=== PATIENT | female | born 1975 | race African-American/Black ===

== ENCOUNTER 2017-01-29 12:46 | Emergency (ER) | payer OTHER ==
[2017-01-29] MEDS ORDERED: NS 0.9% 1000 ML* 1,000 ML IV ONE (13:04)
[2017-01-29] MEDS ORDERED: Ketorolac INJ* 30 MG/ML 1 ML VIAL IV ONE (13:06)
[2017-01-29] MEDS ORDERED: Metoclopramide IV* 5 MG/ML 2 ML VIAL IV ONE (13:06)
[2017-01-29] MEDS ORDERED: diPHENhydraMINE IV* 50 MG/ML 1 ml VIAL (BENADRYL) IV ONE (13:06)
[2017-01-29 13:22] LABS: Hematocrit 41 % (35-47); Hemoglobin 13.4 g/dl (12.0-16.0); Mean Corpuscular HGB Conc 33 g/dl (31-36); Mean Corpuscular Hemoglobin 26 pg (27-31); Mean Corpuscular Volume 80 fL (80-97); Mean Platelet Volume 10 um3 (7.4-10.4); Red Blood Count 5.13 10^6/ul (4.0-5.4); Red Cell Distribution Width 14 % (10.5-15); White Blood Count 5.8 10^3/ul (3.5-10.8)
[2017-01-29 13:31] LABS: Albumin 3.8 g/dL (3.2-5.2); BUN/Creatinine Ratio 8.8 (8-20); C Reactive Protein 1.03 mg/L (< 5.00); Calcium 8.3 mg/dL (8.6-10.3); EGFR African American 67.9 (>60); EGFR Non-African American 52.8 (>60); Globulin 2.9 g/dL (2-4); Potassium 3.5 mmol/L (3.5-5.0); Total Bilirubin 0.2 mg/dL (0.2-1.0); Total Protein 6.7 g/dL (6.4-8.9)
[2017-01-29] MEDS ORDERED: Ondansetron INJ* 2 MG/ML VIAL IV ONE (16:21)
[2017-01-29] MEDS ORDERED: HYDROmorphone* 1 MG/ML 1 ML SYR IV ONE (16:21)
--- NOTE | 2017-01-29 18:37 | RAD ---
INDICATION: Back pain. COMPARISON: There are no prior studies available for comparison. TECHNIQUE: Contiguous axial sections were obtained beginning above the T11 vertebra and continuing through the L5-S1 disc space. Images were reconstructed in the sagittal and coronal planes. FINDINGS: The vertebra are in normal alignment. No fracture is seen. At the L3-L4 level there is a mild broad-based disc bulge and mild hypertrophic changes within the facet joints. There is mild spinal canal narrowing. Neural foramen appear patent on both sides. At the L4-L5 level there is a mild broad-based disc bulge and mild hypertrophic changes within the facet joints. No significant spinal canal narrowing is present. Neural foramen appear patent on both sides. At the L5-S1 level there is a [id number] broad-based disc bulge which abuts both S1 nerve roots in the lateral recess. This causes mild impression on the anterior thecal sac and mild spinal canal narrowing. There are mild hypertrophic changes within the facet joints. Neural foramen appear patent on both sides. Images of the lower abdomen demonstrate fatty infiltration of the liver. IMPRESSION: 1. NO EVIDENCE FOR FRACTURE. 2. MILD TO MODERATE LUMBAR SPONDYLOSIS. 3. IF THE PATIENT'S SYMPTOMS PERSIST RECOMMEND MR IMAGING FOR FURTHER EVALUATION. 4. HEPATIC STEATOSIS.
[2017-01-29] MEDS ORDERED: Ondansetron ODT TAB* 4 MG PO PRN (19:09)
[2017-01-29] MEDS ORDERED: Ondansetron ODT TAB* 4 MG ONE (19:17)
[2017-01-29] MEDS ORDERED: HYDROcodone/ACETAMIN 5-325 MG* 1 TAB ONE (19:17)
[2017-01-29 19:33] VITALS: BP 112/71
[2017-01-29] MEDS ORDERED: HYDROcodone/ACETAMIN 5-325 MG* 1 TAB PO SCH (20:00)
--- NOTE | 2017-02-02 15:32 | ED ---
Rowan Julio SooYoung, scribed for Harmeet Barton MD on 01/29/17 at 1304 . Headache - HPI Summary HPI Summary: A 41 y/o F presents to ED with c/o BEAN onset two days ago after a LP at the pain clinic. She attempted to contact pain clinic but no one was available on the weekends. Associated sx: pain in RLE, confusion, dizziness upon standing, nausea. Pert PMHx: pseudotumor cerebri, migraines. - History Of Current Complaint Chief Complaint: EDHeadache Stated Complaint: CONFUSTION AMS Time Seen by Provider: 01/29/17 12:52 Hx Obtained From: Patient Hx Last Menstrual Period: 06/22/14 Onset/Duration: Started days ago - two days ago, Still Present Timing: Constant Associated Signs And Symptoms: Dizziness, Nausea, Other (Noted In Comments) - POS: RLE PAIN - Allergies/Home Medications Allergies/Adverse Reactions: Allergies Allergy/AdvReac Type Severity Reaction Status Date / Time [place] Allergy unable to Verified 01/27/17 10:25 speak Prednisone Allergy Agitation Verified 01/27/17 10:25 PMH/Surg Hx/FS Hx/Imm Hx Previously Healthy: No Endocrine/Hematology History: Denies: Hx Diabetes Cardiovascular History: Denies: Hx Hypertension, Hx Pacemaker/ICD Respiratory History: Reports: Hx Asthma - Albuterol MDI PRN, Hx Seasonal Allergies History: Denies: Hx Renal Disease Musculoskeletal History: Reports: Hx Back Problems Sensory History: Denies: Hx Hearing Aid Neurological History: Reports: Hx Migraine Psychiatric History: Reports: Hx Anxiety, Hx Depression, Hx Panic Disorder, Hx Post Traumatic Stress Disorder, Hx Bipolar Disorder - Surgical History Surgery Procedure, Year, and Place: LEFT OVARY REMOVED, tonsilectomy 1984 Hx Anesthesia Reactions: No - Immunization History Date of Tetanus Vaccine: 2009 Date of Influenza Vaccine: >10 years ago Infectious Disease History: No Infectious Disease History: Denies: Traveled Outside the [place] in Last 30 Days - Family History Known Family History: Positive: Cardiac Disease - mother, Hypertension - mother Negative: Diabetes - Social History Occupation: Unemployed Lives: With Family Alcohol Use: None Hx Substance Use: No Substance Use Type: Reports: None Hx Tobacco Use: No Smoking Status (MU): Never Smoked Tobacco Have You Smoked in the Last Year: No Review of Systems Positive: Nausea Positive: Other - POS: RLE PAIN Neurological: Other - POS: CONFUSION, DIZZYNESS Positive: Headache All Other Systems Reviewed And Are Negative: Yes Physical Exam Triage Information Reviewed: Yes Vital Signs On Initial Exam: Initial Vitals Temp Pulse Resp BP Pulse Ox 98.4 F 104 18 136/86 99 01/29/17 12:52 01/29/17 12:52 01/29/17 12:52 01/29/17 12:52 01/29/17 12:52 Vital Signs Reviewed: Yes Appearance: Positive: Well-Appearing, No Pain Distress Skin: Positive: Warm, Skin Color Reflects Adequate Perfusion, Dry, Other - POS: LP SITE IS CLEAN, NON-TENDER Head/Face: Positive: Normal Head/Face Inspection Eyes: Positive: Normal, Other: - POS: PAPILLEDEMA ENT: Positive: Normal ENT inspection Neck: Positive: Supple, Nontender Musculoskeletal: Positive: Other - POS: STRAIGHT LEG RAISE ON RIGHT Neurological: Positive: Normal Psychiatric: Positive: Normal, Affect/Mood Appropriate Diagnostics - Vital Signs Vital Signs Temp Pulse Resp BP Pulse Ox 01/29/17 12:52 98.4 F 104 18 136/86 99 - Laboratory Lab Results: Lab Results 01/29/17 01/29/17 Range/Units 13:08 13:08 WBC 5.8 (3.5-10.8) 10^3/ul RBC 5.13 (4.0-5.4) 10^6/ul Hgb 13.4 (12.0-16.0) g/dl Hct 41 (35-47) % MCV 80 (80-97) fL MCH 26 L (27-31) pg MCHC 33 (31-36) g/dl RDW 14 (10.5-15) % Plt Count 274 (150-450) 10^3/ul MPV 10 (7.4-10.4) um3 Neut % (Auto) 44.4 (38-83) % Lymph % (Auto) 45.8 (25-47) % Ashley % (Auto) 7.3 (1-9) % Eos % (Auto) 1.8 (0-6) % Baso % (Auto) 0.7 (0-2) % Absolute Neuts (auto) 2.6 (1.5-7.7) 10^3/ul Absolute Lymphs (auto) 2.7 (1.0-4.8) 10^3/ul Absolute Monos (auto) 0.4 (0-0.8) 10^3/ul Absolute Eos (auto) 0.1 (0-0.6) 10^3/ul Absolute Basos (auto) 0 (0-0.2) 10^3/ul Absolute Nucleated RBC 0.01 10^3/ul Nucleated RBC % 0.1 Sodium 138 (133-145) mmol/L Potassium 3.5 (3.5-5.0) mmol/L Chloride 111 (101-111) mmol/L Carbon Dioxide 21 L (22-32) mmol/L Anion Gap 6 (2-11) mmol/L BUN 10 (6-24) mg/dL Creatinine 1.13 H (0.51-0.95) mg/dL Est GFR ( Amer) 67.9 (>60) Est GFR (Non-Af Amer) 52.8 (>60) BUN/Creatinine Ratio 8.8 (8-20) Glucose 105 H (70-100) mg/dL Calcium 8.3 L (8.6-10.3) mg/dL Total Bilirubin 0.20 (0.2-1.0) mg/dL AST 24 (13-39) U/L ALT 38 (7-52) U/L Alkaline Phosphatase 67 (34-104) U/L C-Reactive Protein 1.03 (< 5.00) mg/L Total Protein 6.7 (6.4-8.9) g/dL Albumin 3.8 (3.2-5.2) g/dL Globulin 2.9 (2-4) g/dL Albumin/Globulin Ratio 1.3 (1-3) Result Diagrams: 01/29/17 13:08 01/29/17 13:08 Lab Statement: Any lab studies that have been ordered have been reviewed, and results considered in the medical decision making process. - CT L-SPINE CT Interpretation: No Acute Changes - IMPRESSION: 1. NO EVIDENCE FOR FRACTURE. 2. MILD TO MODERATE LUMBAR SPONDYLOSIS. 3. IF THE PATIENT'S SYMPTOMS PERSIST RECOMMEND MR IMAGING FOR FURTHER EVALUATION. 4. HEPATIC STEATOSIS. CT Interpretation Completed By: Radiologist Re-Evaluation - Re-Evaluation 1 Re-Evaluation Time: 18:39 Change: Improved - mildly Comment: Discussing CT results with pt. Headache Course/Dx - Course Assessment/Plan: Pt is a 41 y/o F with recent diagnosis of psuedotumor cerebri who had a LP two days ago and has been experiencing RLE pain, BEAN, confusion, dizziness and nausea since. PE found the wound site clean and non-tender, some L papilledema. L-spine CT showed no fx, mild-moderate lumbar spondylosis, hepatic steatosis, and suggested MRI for further evaluation if symptoms persist. Will D/C home with Zofran and Hydrocodone/Acetaminophen. Pt voiced understanding. - Diagnoses Provider Diagnoses: Headache - Physician Notifications Discussed Care Of Patient With: 1619: Dr. Uribe, neuro, recommends symptomatic pain control; recommends against blood patch. 174: Spoke to Dr. Uribe. Discharge - Discharge Plan Condition: Stable Disposition: HOME Prescriptions: HYDROcodone/ACETAMIN 5-325 MG* [[place] 5-325 TAB*] 1 tab PO Q6H PRN #20 tab MDD 4 PRN Reason: Pain Ondansetron ODT TAB* [Zofran Odt TAB*] 4 mg PO Q6H PRN #20 tab.odt PRN Reason: Nausea/Vomiting Patient Education Materials: Acute Headache (ED), Hydrocodone/Acetaminophen ( By mouth), Ondansetron (By mouth) Referrals: Mercedes Dill MD [Primary Care Provider] - The documentation as recorded by the Rowan jacinto SooYoung accurately reflects the service I personally performed and the decisions made by me, Harmeet Barton MD.
== END 2017-01-29 19:31 | disposition home or self-care (01) ==
LOC: ED 12:46
DX: R51 Headache (principal); R42 Dizziness and giddiness; R11.0 Nausea
CPT/HCPCS: 36415; 72131; 80053; 85025; 86140; 96365; 96375; 99283; A9270-GY; J1170; J1200; J1885; J2405

== ENCOUNTER 2017-02-20 14:27 | Emergency (ER) | payer OTHER ==
[2017-02-20] MEDS ORDERED: Ondansetron INJ* 2 MG/ML VIAL IV ONE (15:29)
[2017-02-20] MEDS ORDERED: Morphine INJ* 4 MG/ML 1 ML SYRINGE IV ONE ×2 (15:29→16:58)
[2017-02-20] MEDS ORDERED: NS 0.9% 1000 ML* 1,000 ML IV ONE (15:29)
[2017-02-20 15:37] LABS: Hematocrit 43 % (35-47); Hemoglobin 14.1 g/dl (12.0-16.0); Mean Corpuscular HGB Conc 33 g/dl (31-36); Mean Corpuscular Hemoglobin 27 pg (27-31); Mean Corpuscular Volume 81 fL (80-97); Mean Platelet Volume 10 um3 (7.4-10.4); Red Blood Count 5.27 10^6/ul (4.0-5.4); Red Cell Distribution Width 15 % (10.5-15); White Blood Count 6.3 10^3/ul (3.5-10.8)
[2017-02-20 15:57] LABS: Albumin 4.5 g/dL (3.2-5.2); BUN/Creatinine Ratio 8.2 (8-20); Calcium 8.8 mg/dL (8.6-10.3); EGFR African American 62.2 (>60); EGFR Non-African American 48.3 (>60); Globulin 3.3 g/dL (2-4); Magnesium 2.1 mg/dL (1.9-2.7); Potassium 3.4 mmol/L (3.5-5.0); Total Bilirubin 0.4 mg/dL (0.2-1.0); Total Protein 7.8 g/dL (6.4-8.9)
[2017-02-20] MEDS ORDERED: Potassium Chlor TAB* 20 MEQ TAB.ER PO ONE (16:06)
--- NOTE | 2017-02-20 17:07 | ED ---
I, Oh,Kamilla, scribed for Teresa Torres MD on 02/20/17 at 1459 . Headache - HPI Summary HPI Summary: This 41 y/o female presents to ED for BEAN and difficulty with word finding since 1400 PM today. Pt was shopping at time of onset when she forgot what she was doing and became concerned. Positive blurred vision, trouble with word finding, and memory problem. Negative weakness. She is noted to be normotensive with systolic blood pressure of 109 en route per EMS. PMHx is significant for recently diagnosed pseudotumor cerebri and intracranial HTN in November 2016. Pt states that she had spinal tab and fluid trained 3 weeks ago. Primary care involves Dr. Uribe as her neurologist. Pt is unemployed and is currently living with her daughter. - History Of Current Complaint Chief Complaint: EDHeadache Stated Complaint: HEADACHE Hx Obtained From: Patient Hx Last Menstrual Period: 06/22/14 Onset/Duration: Sudden Onset Timing: Constant Character: Dull Location of Headache: Diffuse Aggravating Factor: Nothing Allevating Factors: Nothing Associated Signs And Symptoms: Visual Changes - blurred vision, Other (Noted In Comments) - trouble word finding - Allergies/Home Medications Allergies/Adverse Reactions: Allergies Allergy/AdvReac Type Severity Reaction Status Date / Time [place] Allergy unable to Verified 01/27/17 10:25 speak Prednisone Allergy Agitation Verified 01/27/17 10:25 Home Medications: Home Medications Acetazolamide [Acetazolamide ER] 500 mg PO BID 02/20/17 [History Confirmed 02/20] Doxepin HCl 75 mg PO BEDTIME 02/20/17 [History Confirmed 02/20/17] Furosemide TAB* [Lasix TAB*] 20 mg PO EVERY OTHER DAY 02/20/17 [History Confirmed 02/20/17] HYDROcodone/ACETAMIN 5-325 MG* [[place] 5-325 TAB*] 1 tab PO TID PRN 02/20/17 [ History Confirmed 02/20/17] Ondansetron [Ondansetron Odt] 8 mg PO TID PRN 02/20/17 [History Confirmed ] Potassium Chlor TAB* [Klor Con ER TAB*] 20 meq PO EVERY OTHER DAY 02/20/17 [ History Confirmed 02/20/17] Pregabalin CAP(*) [Lyrica CAP(*)] 150 mg PO BID 02/20/17 [History Confirmed ] Topiramate TAB(*) [Topamax 100 mg tab] 150 mg PO BID 02/20/17 [History Confirmed 02/20/17] metFORMIN* [Glucophage 500 MG TAB *] 500 mg PO DAILY 02/20/17 [History Confirmed 02/20/17] risperiDONE TAB* [RisperDAL*] 1 mg PO BEDTIME 02/20/17 [History Confirmed ] PMH/Surg Hx/FS Hx/Imm Hx Endocrine/Hematology History: Denies: Hx Diabetes Cardiovascular History: Denies: Hx Hypertension, Hx Pacemaker/ICD Respiratory History: Reports: Hx Asthma - Albuterol MDI PRN, Hx Seasonal Allergies History: Denies: Hx Renal Disease Musculoskeletal History: Reports: Hx Back Problems Sensory History: Denies: Hx Hearing Aid Neurological History: Reports: Hx Migraine Psychiatric History: Reports: Hx Anxiety, Hx Depression, Hx Panic Disorder, Hx Post Traumatic Stress Disorder, Hx Bipolar Disorder - Surgical History Surgery Procedure, Year, and Place: LEFT OVARY REMOVED, tonsilectomy 1983 Hx Anesthesia Reactions: No - Immunization History Date of Tetanus Vaccine: 2009 Date of Influenza Vaccine: >10 years ago Infectious Disease History: No Infectious Disease History: Denies: Traveled Outside the [place] in Last 30 Days - Family History Known Family History: Positive: Cardiac Disease - mother, Hypertension - mother Negative: Diabetes - Social History Alcohol Use: None Hx Substance Use: No Substance Use Type: Reports: None Hx Tobacco Use: No Smoking Status (MU): Never Smoked Tobacco Have You Smoked in the Last Year: No Review of Systems Negative: Fever Positive: Blurred Vision Neurological: Other - positive for trouble with word finding. Memory problems Positive: Headache. Negative: Numbness All Other Systems Reviewed And Are Negative: Yes Physical Exam Triage Information Reviewed: Yes Vital Signs On Initial Exam: Initial Vitals Temp Pulse Resp BP Pulse Ox 98.4 F 83 16 112/76 99 02/20/17 14:44 02/20/17 14:44 02/20/17 14:44 02/20/17 14:44 02/20/17 14:44 Vital Signs Reviewed: Yes Appearance: Positive: Well-Appearing, No Pain Distress Skin: Positive: Warm, Skin Color Reflects Adequate Perfusion, Dry Head/Face: Positive: Normal Head/Face Inspection Eyes: Positive: EOMI, KENISHA Neck: Positive: Supple, Nontender Respiratory/Lung Sounds: Positive: Clear to Auscultation, Breath Sounds Present Cardiovascular: Positive: RRR, Pulses are Symmetrical in both Upper and Lower Extremities Musculoskeletal: Positive: Strength/ROM Intact Neurological: Positive: Sensory/Motor Intact, Alert, Oriented to Person Place, Time, CN Intact II-III, Other - Trouble with word finding. Diagnostics - Vital Signs Vital Signs Temp Pulse Resp BP Pulse Ox 02/20/17 14:44 98.4 F 83 16 112/76 99 - Laboratory Lab Results: Lab Results 02/20/17 02/20/17 Range/Units 15:00 15:00 WBC 6.3 (3.5-10.8) 10^3/ul RBC 5.27 (4.0-5.4) 10^6/ul Hgb 14.1 (12.0-16.0) g/dl Hct 43 (35-47) % MCV 81 (80-97) fL MCH 27 (27-31) pg MCHC 33 (31-36) g/dl RDW 15 (10.5-15) % Plt Count 304 (150-450) 10^3/ul MPV 10 (7.4-10.4) um3 Neut % (Auto) 52.6 (38-83) % Lymph % (Auto) 39.0 (25-47) % Young % (Auto) 4.4 (1-9) % Eos % (Auto) 3.2 (0-6) % Baso % (Auto) 0.8 (0-2) % Absolute Neuts (auto) 3.3 (1.5-7.7) 10^3/ul Absolute Lymphs (auto) 2.5 (1.0-4.8) 10^3/ul Absolute Monos (auto) 0.3 (0-0.8) 10^3/ul Absolute Eos (auto) 0.2 (0-0.6) 10^3/ul Absolute Basos (auto) 0.1 (0-0.2) 10^3/ul Absolute Nucleated RBC 0.03 10^3/ul Nucleated RBC % 0.5 Sodium 137 (133-145) mmol/L Potassium 3.4 L (3.5-5.0) mmol/L Chloride 109 (101-111) mmol/L Carbon Dioxide 21 L (22-32) mmol/L Anion Gap 7 (2-11) mmol/L BUN 10 (6-24) mg/dL Creatinine 1.22 H (0.51-0.95) mg/dL Est GFR ( Amer) 62.2 (>60) Est GFR (Non-Af Amer) 48.3 (>60) BUN/Creatinine Ratio 8.2 (8-20) Glucose 84 (70-100) mg/dL Calcium 8.8 (8.6-10.3) mg/dL Magnesium 2.1 (1.9-2.7) mg/dL Total Bilirubin 0.40 (0.2-1.0) mg/dL AST 18 (13-39) U/L ALT 26 (7-52) U/L Alkaline Phosphatase 78 (34-104) U/L Total Protein 7.8 (6.4-8.9) g/dL Albumin 4.5 (3.2-5.2) g/dL Globulin 3.3 (2-4) g/dL Albumin/Globulin Ratio 1.4 (1-3) Result Diagrams: 02/20/17 15:00 02/20/17 15:00 Lab Statement: Any lab studies that have been ordered have been reviewed, and results considered in the medical decision making process. Re-Evaluation - Re-Evaluation First Eval Re-Evaluation Time: 16:53 Comment: MD in room to re-evaluate pt. Headache Course/Dx - Course Course Of Treatment: Case discussed at length with Dr. Uribe who knows pt well she does have a history of anxiety, migraines and more recently pseudotumor cerebri. Her headaches have been difficult to manage and she is seeing a specialist on in [place]. He suggested that her word finding and feeling of disorientation were not likely secondary to stroke but that checking electrolytes would be prudent given her medication of acetazolamide. Her potassium was repleted and her pain was controlled her and she is going home with a short course of pain meds - Diagnoses Provider Diagnoses: Headache, Hypokalemia - Physician Notifications Discussed Care Of Patient With: Dr. Uribe (Neurologist) at 1521 PM -- recommends checking her electrolytes since acetazolamide. Pt states it is unlikely that she has CVA on top of her psuedotumor cerebri. Discharge - Discharge Plan Condition: Stable Disposition: HOME Prescriptions: HYDROcodone/ACETAMIN 5-325 MG* [[place] 5-325 TAB*] 1 tab PO Q4H PRN #14 tab MDD 6 PRN Reason: Pain Ondansetron TAB* [Zofran 4 MG Tab*] 4 mg PO Q6H PRN #14 tab PRN Reason: Nausea Patient Education Materials: Hydrocodone/Acetaminophen (By mouth), Ondansetron (By mouth), Hypokalemia (ED), General Headache (ED) Referrals: Mercedes Dill MD [Primary Care Provider] - 2 Days The documentation as recorded by the Trever jacinto Soohyun accurately reflects the service I personally performed and the decisions made by me, Teresa Torres MD.
[2017-02-20 19:02] LABS: Urine Bilirubin Negative (Negative); Urine Glucose Negative (Negative); Urine Nitrite Negative (Negative)
--- NOTE | 2017-02-20 20:13 | RAD ---
INDICATION: Slurred speech, difficulty with words. COMPARISON: Comparison is made with a prior MRI of the brain from August 03, [address] of the brain from December 16, 2014. TECHNIQUE: Sagittal T1, axial T1, T2, susceptibility, FLAIR and diffusion weighted images were obtained. FINDINGS: The ventricles, cisterns and sulci appear to be within normal limits. No significant focal abnormality or mass effect is seen. No areas of restricted diffusion are present. There is no evidence for infarct or hemorrhage. There is mild bilateral exophthalmos which appears unchanged. There is a small area of mucosal thickening present with an either the anterior recess of the sphenoid sinus or a posterior ethmoid air cell on the right side which appears unchanged from the prior study. The paranasal sinuses and mastoid air cells otherwise appear clear. IMPRESSION: 1. NO EVIDENCE FOR ACUTE INTRACRANIAL ABNORMALITY. 2. BILATERAL EXOPHTHALMUS, UNCHANGED. THIS CAN BE SEEN WITH THYROID OPHTHALMOPATHY. RECOMMEND CLINICAL CORRELATION.
[2017-02-20 20:19] VITALS: BP 111/69
--- NOTE | 2017-02-20 21:04 | ED ---
I, Kamilla Perera, scribed for Teresa Torres MD on 02/20/17 at 1840 . Progress - Progress Note Progress Note: A friend is present at bedside strongly requesting admission. 2100 spoke with neurologist again after her mri which is negative, which rules out stroke. The neurologist feels comfortable with this report and it is therefore ok for the pt to go home. Pt is in agreement with this her nih scale for me is negative except for visual field issues on the left (see fingers but can not detect movement). Pt feels comfortable going home. - Results/Orders Results/Orders: Brain MRI -- 1. NO EVIDENCE FOR ACUTE INTRACRANIAL ABNORMALITY 2. BILATERAL EXOPHTHALMUS, UNCHANGED. THIS CAN BE SEEN WITH THYROID OPHTHALMOPATHY. RECOMMEND CLINICAL CORRELATION. Re-Evaluation - Re-Evaluation First Eval Re-Evaluation Time: 16:53 Comment: MD in room to re-evaluate pt. Second Eval Re-Evaluation Time: 18:53 Comment: MD in room to update pt and friend present at bedside on neuro consult and plan of care. Third Eval Re-Evaluation Time: 20:54 Comment: MD in room to update pt and friend on hospitalist and neurologist consult. Course/Dx - Diagnoses Provider Diagnoses: Headache, Hypokalemia - Provider Notifications Discussed Care Of Patient With: Dr. Aponte (Neurologist) at 1846 PM -- recommends non-contrast MRI. Remigio Nolasco NP (Hospitalist) at [address] García (Neurologist) at [address] Aponte (Neurologist) at 2052 PM The documentation as recorded by the Trever jacinto Soohyun accurately reflects the service I personally performed and the decisions made by me, Teresa Torres MD.
[2017-02-20] MEDS ORDERED: HYDROcodone/ACETAMIN 5-325 MG* 1 TAB PO ONE (21:22)
== END 2017-02-20 21:30 | disposition home or self-care (01) ==
LOC: ED 14:27
DX: R51 Headache (principal); E87.6 Hypokalemia; H53.8 Other visual disturbances
CPT/HCPCS: 36415; 70551; 80053; 81003; 83735; 85025; 96374; 96375; 99284; A9270-GY; J2270; J2405

== ENCOUNTER 2019-09-23 20:40 | Inpatient (IN) | payer BC, OTHER ==
[2019-09-23] MEDS ORDERED: Ondansetron INJ* 2 MG/ML VIAL IV ONE (21:34)
[2019-09-23] MEDS ORDERED: Ketorolac INJ* 30 MG/ML 1 ML VIAL IV PUSH ONE (21:34)
--- NOTE | 2019-09-23 21:43 | ED ---
Abdominal Pain/Female - HPI Summary HPI Summary: Pt is a 43 y/o F presenting to the ED with a chief complaint of RLQ abd pain initially onset on the morning of 09/23/19, waking her up from sleep. She has been cramping all day, with associated nausea. She has not vomited yet. She notes hx of endometriosis and ovarian cysts for which shes had her R ovary removed, and she also notes shes currently ovulating but normally does not have pain like this. The severity of the pain waxes and wanes. She denies fever. - History of Current Complaint Chief Complaint: EDAbdPain Stated Complaint: CRAMPS PER PT Hx Obtained From: Patient Hx Last Menstrual Period: 06/22/14 Onset/Duration: Sudden Onset, Lasting Hours, Still Present Timing: Constant Severity Initially: Moderate Severity Currently: Severe Pain Intensity: 8 Pain Scale Used: 0-10 Numeric Location: Discrete At: RLQ Radiates: No Character: Cramping Aggravating Factor(s): Nothing Alleviating Factor(s): Nothing Associated Signs and Symptoms: Positive: Nausea. Negative: Fever, Vomiting Allergies/Adverse Reactions: Allergies Allergy/AdvReac Type Severity Reaction Status Date / Time lithium Allergy Unknown Verified 09/23/19 20:46 Reaction Details prednisone Allergy Agitation Verified 09/23/19 20:46 PMH/Surg Hx/FS Hx/Imm Hx Previously Healthy: Yes Endocrine/Hematology History: Denies: Hx Diabetes Cardiovascular History: Denies: Hx Hypertension, Hx Pacemaker/ICD Respiratory History: Reports: Hx Asthma - Albuterol MDI PRN, Hx Seasonal Allergies History: Reports: Other Problems/Disorders - ovarian cysts, endometriosis Denies: Hx Renal Disease Musculoskeletal History: Reports: Hx Back Problems Sensory History: Denies: Hx Hearing Aid Neurological History: Reports: Hx Migraine Psychiatric History: Reports: Hx Anxiety, Hx Depression, Hx Panic Disorder, Hx Post Traumatic Stress Disorder, Hx Bipolar Disorder - Surgical History Surgery Procedure, Year, and Place: LEFT OVARY REMOVED, tonsilectomy 1983 Hx Anesthesia Reactions: No - Immunization History Date of Tetanus Vaccine: 2009 Date of Influenza Vaccine: >10 years ago Infectious Disease History: No Infectious Disease History: Denies: Traveled Outside the [place] in Last 30 Days - Family History Known Family History: Positive: Cardiac Disease - mother, Hypertension - mother Negative: Diabetes - Social History Alcohol Use: None Hx Substance Use: No Substance Use Type: Reports: None Hx Tobacco Use: No Smoking Status (MU): Never Smoked Tobacco Have You Smoked in the Last Year: No Review of Systems Negative: Fever Positive: Abdominal Pain, Nausea. Negative: Vomiting All Other Systems Reviewed And Are Negative: Yes Physical Exam - Summary Physical Exam Summary: Appearance: Well-appearing, Well-nourished, lying in bed comfortably Skin: Warm, dry, no obvious rash Eyes: sclera anicteric, no conjunctival pallor ENT: mucous membranes moist, pharynx appears normal Neck: Supple, nontender Respiratory: Clear to auscultation, no signs of respiratory distress Cardiovascular: Normal S1, S2. No murmurs. Normal distal pulses in tibial and radial bilaterally. Abdomen: Soft, tender in the RLQ, normal active bowel sounds present Musculoskeletal: Normal, Strength/ROM Intact Neurological: A&Ox3, awake and alert, mentation is normal, speech is fluent and appropriate Psychiatric: affect is normal, does not appear anxious or depressed Triage Information Reviewed: Yes Vital Signs On Initial Exam: Initial Vitals Temp Pulse Resp BP Pulse Ox 96.7 F 54 18 162/93 100 09/23/19 20:42 09/23/19 20:42 09/23/19 20:42 09/23/19 20:42 09/23/19 20:42 Vital Signs Reviewed: Yes Procedures - Sedation Patient Received Moderate/Deep Sedation with Procedure: No Diagnostics - Vital Signs Vital Signs Temp Pulse Resp BP Pulse Ox 09/23/19 20:42 96.7 F 54 18 162/93 100 - Laboratory Result Diagrams: 09/23/19 21:38 09/23/19 21:38 Lab Statement: Any lab studies that have been ordered have been reviewed, and results considered in the medical decision making process. - CT CT a/p CT Interpretation Completed By: Radiologist Summary of CT Findings: 1. Early versus partial small bowel obstruction in the region of the distal ileum. 2. Left lower lobe pulmonary nodule. 3. Partial collapse of the colon, as described above. ED physician has reviewed this report. - Ultrasound Transvaginal US Ultrasound Interpretation Completed By: Radiologist Summary of Ultrasound Findings: 1. Small cystic structure adjacent to the fundus of the uterus. 2. Right ovary is obscured by bowel gas. 3. Small amount of free intraperitoneal fluid. ED physician has reviewed this report. Abdominal Pain Fem Course/Dx - Course Course Of Treatment: 43 y/o F presenting to the ED with abdominal cramping since early on 09/23/19. Accompanied by nausea. She denies fever and vomiting. Hx endometriosis, ovarian cysts, and oophorectomy of one of her ovaries, she's unsure which one. Pt's physical exam shows RLQ tenderness. Transvaginal US shows: 1. Small cystic structure adjacent to the fundus of the uterus. 2. Right ovary is obscured by bowel gas. 3. Small amount of free intraperitoneal fluid. CT a/p shows: 1. Early versus partial small bowel obstruction in the region of the distal ileum. 2. Left lower lobe pulmonary nodule. 3. Partial collapse of the colon, as described above. Dr. Colón accepts pt to [facility] [place] as of 307. Dx of SBO. - Diagnoses Provider Diagnoses: SBO (small bowel obstruction) Discharge ED - Sign-Out/Discharge Documenting (check all that apply): Patient Departure - Discharge Plan Condition: Stable Disposition: ADMITTED TO [facility] - Billing Disposition and Condition Condition: STABLE Disposition: Admitted to [facility] - Attestation Statements Document Initiated by Scribe: Yes Documenting Scribe: Chela Whittaker Provider For Whom Stefany is Documenting (Include Credential): Harmeet Wallace MD. Scribe Attestation: Chela Julio scribed for Harmeet Wallace MD. on 09/24/19 at 0535. Scribe Documentation Reviewed: Yes Provider Attestation: The documentation as recorded by the raeibeChela accurately reflects the service I personally performed and the decisions made by Harmeet olguin MD. Status of Scribe Document: Viewed
[2019-09-23 21:45] LABS: ABS Lymphocytes 0.9 10^3/ul (1.0-4.8); ABS Monocytes 0.2 10^3/ul (0-0.8); ABS Neutrophils 8.1 10^3/ul (1.5-7.7); Eosinophil % 0.3 %; Hematocrit 47 % (35-47); Hemoglobin 16.3 g/dL (12.0-16.0); Mean Corpuscular HGB Conc 35 g/dL (31-36); Mean Corpuscular Hemoglobin 29 pg (27-31); Mean Corpuscular Volume 83 fL (80-97); Nucleated Red Blood Cells % 0.2; Platelet Count 367 10^3/uL (150-450); Red Blood Count 5.66 10^6 /uL (3.70-4.87); Red Cell Distribution Width 14 % (10-15); White Blood Count 9.2 10^3/uL (3.5-10.8)
[2019-09-23 22:03] LABS: ALT 17 U/L (7-52); AST 15 U/L (13-39); Albumin 4.9 g/dL (3.2-5.2); Albumin/Globulin Ratio 1.6 (1-3); Alkaline Phosphatase 55 U/L (34-104); Anion Gap 14 mmol/L (2-11); Blood Urea Nitrogen 10 mg/dL (6-24); C Reactive Protein 1.15 mg/L (<8.01); CO2 Carbon Dioxide 21 mmol/L (22-32); Chloride 100 mmol/L (101-111); EGFR African American 81.3 (>60); EGFR Non-African American 67.2 (>60); Glucose 97 mg/dL (70-100); Potassium 4.7 mmol/L (3.5-5.0); Sodium 135 mmol/L (135-145); Total Protein 7.9 g/dL (6.4-8.9)
[2019-09-23 22:10] LABS: HCG Pregnancy < 0.60 mIU/mL
[2019-09-23] MEDS ORDERED: Morphine 4 MG/ML VIAL (1 ml) 4 MG/ML VIAL IV PRN (22:57)
[2019-09-23] MEDS ORDERED: Morphine 4 MG/ML VIAL (1 ml) 4 MG/ML VIAL IV ONE (22:57)
[2019-09-24] MEDS ORDERED: PROCHLORPERAZINE INJ 5 MG/ML 2 ML VIAL IV ONE (01:39)
[2019-09-24] MEDS ORDERED: Ondansetron INJ* 2 MG/ML VIAL ONE (01:40)
[2019-09-24] MEDS ORDERED: Iohexol 300* (CONTRAST) 10 ML SDV IV ONE (01:56)
[2019-09-24 02:13] LABS: Urine Appearance Clear; Urine Bilirubin Negative (Negative); Urine Blood Negative (Negative); Urine Color Yellow; Urine Glucose Negative (Negative); Urine Ketones 2+ (Negative); Urine Nitrite Negative (Negative); Urine Protein 1+(30 mg/dL) (Negative); Urine Urobilinogen Negative (Negative)
[2019-09-24 02:20] LABS: Urine Bacteria Absent (Absent); Urine Red Blood Cell Trace(0-2/hpf) (Absent); Urine Squamous Epithelial Cell Present (Absent); Urine White Blood Cell Trace(0-5/hpf) (Absent)
[2019-09-24] MEDS: NS 0.9% 1000 ML** 1,000 ML IV SCH ×2 (05:33→18:14)
[2019-09-24] MEDS: Ondansetron INJ* 2 MG/ML VIAL IV PRN ×3 (06:01→20:15)
[2019-09-24] MEDS: Morphine INJ* 4 MG/ML 1 ML SYRINGE (NEW SYRINGE VERSION) IV PRN ×6 (08:00→23:35)
--- NOTE | 2019-09-24 08:28 | HP ---
CC: [facility] * HISTORY AND PHYSICAL: DATE OF ADMISSION: 09/24/19 PRIMARY CARE PROVIDER: [facility]. NEUROLOGIST: Dr. Uribe. CHIEF COMPLAINT: Abdominal pain. HISTORY OF PRESENT ILLNESS: Ms. Casarez is a 43-year-old female who has a history of endometriosis, requiring past right oophorectomy, who presents to the emergency room with complaints of severe right lower quadrant abdominal pain. The patient states that 09/22/19, she had a relatively uneventful day. She states that by evening, however, she did not really want to eat dinner. She had no pain, however, at that time. She woke up Monday, , with severe right lower quadrant abdominal pain. She describes this as a cramping feeling. She states that the pain got progressively worse throughout the day. She went to work, and by noon, she could not sit comfortably and therefore was sent home. She tells me she has had nausea and vomiting throughout the day on 09/23/19. She did not eat anything. Her last BM was on 09/22/19 and she last passed flatus on 09/22/19. She states currently she is the most comfortable she has been. PAST MEDICAL HISTORY: 1. Endometriosis. 2. Migraines. 3. Bipolar disorder. 4. Asthma. PAST SURGICAL HISTORY: 1. Right oophorectomy. 2. Tonsillectomy. MEDICATIONS: 1. Acetazolamide 500 mg p.o. b.i.d. 2. Potassium chloride 20 mEq p.o. every other day. ALLERGIES: LITHIUM and PREDNISONE. FAMILY HISTORY: Mom is living, she is 72, she has asthma and hypertension. Dad is also living, he is healthy. SOCIAL HISTORY: The patient does not smoke. She drinks alcohol approximately twice per week and drinks few glasses of wine when she does drink. She works at [employer]. Her significant other is here with her. She has 1 child. She indicates that her mom, Pao, would be her healthcare proxy. REVIEW OF SYSTEMS: The patient denies any fevers. She does admit to having chills. She has had poor appetite over the last 24 hours. No chest pain. No edema of the legs. No cough. No shortness of breath. She has nausea, vomiting , and abdominal discomfort as above. No hematochezia. No hematuria. No dysuria. No focal weakness or sensory loss. No sudden changes in vision. No dysphagia. No joint pains or muscle pains out of the ordinary. She does admit to anxiety. PHYSICAL EXAMINATION GENERAL: The patient is a well-developed, middle-aged female, seeing sitting up in the stretcher, in no acute distress. VITAL SIGNS: Blood pressure 118/73, pulse 51, respirations 16, temp 96.7, O2 sat 98% on room air. HEENT: Pupils are equal. Extraocular muscles are intact. Oropharynx is clear. Oral mucosa is moist. PULMONARY: Lungs are clear to auscultation bilaterally. CARDIAC: Normal S1 and S2. Regular rate and rhythm. I do not appreciate any murmurs. There is no lower extremity edema. ABDOMEN: Bowel sounds are hypoactive. Abdomen is soft, nondistended. She is moderately tender to palpation in the right greater than left lower quadrant. MUSCULOSKELETAL: There is no cyanosis or clubbing of the digits. There is full active range of motion of all 4 extremities. NEUROLOGIC: Cranial nerves II through XII are grossly intact. Sensation is intact to light touch throughout. Strength is 5/5 and symmetric in both upper and lower extremities bilaterally. PSYCH: The patient is alert. She is oriented x3. SKIN: Visible areas of skin are warm and dry and without rash. DIAGNOSTIC STUDIES/LAB DATA: Labs: WBC 9.2, hemoglobin 16.3, hematocrit 47, platelets 367. Sodium 135, potassium 4.7, chloride 100, CO2 of 21, BUN 10, creatinine 0.91, glucose 97, calcium 10.0. Bilirubin 0.6, AST 15, ALT 17, alk phos 55. CRP 1.15. Albumin of 4.9, lipase 13. Urinalysis reveals a specific gravity of 1.030, 2+ ketones. Transvaginal ultrasound: There is a small cystic structure adjacent to the fundus of the uterus, right ovary is reportedly obscured by bowel gas; however, the patient reports oophorectomy. There is a small amount of free intraperitoneal air. CT abdomen and pelvis: Early versus partial small bowel obstruction in the region of the distal ileum. There is a left lower lobe pulmonary nodule. There is partial collapse of the colon. ASSESSMENT AND PLAN: Ms. Casarez is a 43-year-old female with a history of endometriosis, status post oophorectomy on the right, who presents to the emergency room with complaints of right lower quadrant abdominal pain. 1. Partial small bowel obstruction. At this point, the patient has either a partial small bowel obstruction or early complete small bowel obstruction. She is more comfortable currently after receiving pain medications in the emergency room. She has still not passed any flatus. At this point, she is not markedly distended and not vomiting. Therefore, I will hold off on inserting a nasogastric tube. She will have Zofran for nausea and morphine for pain control. She will be n.p.o. Abdominal x-ray has been ordered for the morning of 09/25/19 to evaluate for improvement of the obstruction. 2. Migraines. The patient reportedly takes acetazolamide for her migraines. This will be on hold while n.p.o. 3. Bipolar disorder. The patient is not on treatment for this. 4. DVT prophylaxis. According to the Adult Thrombosis Prophylaxis Risk Factor Assessment Guide, the patient has a total risk factor score of 1, making her low risk. Ambulation will be utilized as DVT prophylaxis. 6. Code status is full. TIME SPENT: Fifty minutes was spent admitting this patient. [id number]/CPS #: [id number] MTDD
--- NOTE | 2019-09-24 13:32 | PN ---
Subjective Date of Service: 09/24/19 Interval History: Patient complained of persistent RLQ pain, radiating to back, a/w nausea but no vomitting. No bowel movement since Monday morning. Not passing gas. History of right ovary removal for endometriosis. Last menses 2 weeks ago. Objective Active Medications: Sodium Chloride (Ns 0.9% 1000 Ml) 1,000 mls @ 100 mls/hr IV PER RATE RONIT Last Admin: 09/24/19 05:33 Dose: 100 mls/hr Morphine Sulfate (Morphine Inj (Syringe)*) 4 mg IV Q1H PRN PRN Reason: PAIN - MODERATE Last Admin: 09/24/19 08:00 Dose: 4 mg Ondansetron HCl (Zofran Inj*) 4 mg IV Q6H PRN PRN Reason: NAUSEA Last Admin: 09/24/19 06:01 Dose: 4 mg Vital Signs - 8 hr 09/24/19 09/24/19 09/24/19 05:31 07:15 08:00 Temperature 97.6 F 97.6 F Pulse Rate 51 56 Respiratory 18 23 18 Rate Blood Pressure 108/68 108/69 (mmHg) O2 Sat by Pulse 100 100 Oximetry Oxygen Devices in Use Now: None Exam: Appearance: alert, no distress Ears/Nose/Mouth/Throat: Clear Oropharnyx Neck: NL Appearance and Movements; NL JVP, tunnelled catheter RT neck Respiratory: Symmetrical Chest Expansion and Respiratory Effort, Clear to Auscultation Cardiovascular: NL Sounds; No Murmurs; No JVD Abdominal: NL Sounds; No Tenderness; No Distention;RLQ abdominal tenderness, with no rebound tenderness, BS absent Neurological: Alert and Oriented x 3 Lines/Tubes/Other Access: Clean, Dry and Intact Peripheral IV Result Diagrams: 09/23/19 21:38 09/23/19 21:38 Assess/Plan/Problems-Billing Assessment: 43 y/o female with history of endometriosis, ovary removal, presented with abdominal cramping, found to have partial small bowel obstruction. - Patient Problems (1) Small bowel obstruction due to adhesions Current Visit: Yes Status: Acute Code(s): K56.50 - INTESTNL ADHESIONS, UNSP TO PARTIAL VERSUS COMPLETE OBST SNOMED Code(s): 842162144 Comment: - likely due to surgical adhesions or endometriosis - on medical management for now, npo, will consider ngt insertion if still having abdominal pain - surgical consult today - will need surgical management if not improving - iv morphine for pain control (2) DVT prophylaxis Current Visit: Yes Status: Acute Code(s): Z29.9 - ENCOUNTER FOR PROPHYLACTIC MEASURES, UNSPECIFIED SNOMED Code(s): 582930976 Comment: ambulatory Status and Disposition: Inpatient Medicine. Attestation Documenting Resident: Jacki Taylor Supervising Physician: Geo Urbina Attending/Supervising Physician Comment: This AM With RLQ dull aching pain with occasional sharper twinges that have been improved since IV morphine . Nausea but no vomiting (with zofran) Consider NGT placement to decompress stomache given continued pain and nausea without passing of flatus or BM. Requested sugery consult. Serial abdominal exams with concern that frequent morphine, if required, may mask full physical exam findings. Attestation: This service has been performed in part by a resident under the direction of a teaching physician.I, Geo Urbina, performed the service, or was physically present during the critical, or hernandez portions of the service, furnished by the resident. I participated in the management of the patient.
--- NOTE | 2019-09-24 16:15 | CONS ---
CC: Mercedes Dill MD * SURGICAL CONSULTATION: DATE OF CONSULT: 09/24/19 REASON FOR CONSULT: Small bowel obstruction. HISTORY OF PRESENT ILLNESS: This is a 43-year-old female with a past history of laparoscopic oophorectomy for endometriosis in 2002. She presented to [facility] Emergency Room last night with first episode of small bowel obstruction. Her symptoms began in the morning on 09/23/19 and she had progressive diffuse abdominal pain with 2 subsequent episodes of brown emesis with nausea. She had only been able to work part of the day due to her pain and her pain was unrelieved by ibuprofen and due to its progressive severity, she went to the emergency room at [facility]. There, she had evaluation with laboratory testing and CT imaging. Her laboratory testing revealed no leukocytosis and normal CRP and her CT scan was remarkable for early or partial small bowel obstruction. She was admitted to the hospitalist service and today surgical consultation is requested. At the time I interviewed the patient, she was sleeping, but she was easily arousable and she denied any severe pain, reporting good relief from Toradol. She denied passing flatus or having a bowel movement since 09/22/19. She denied any nausea or vomiting and reported that she felt slightly better at this time. PAST MEDICAL HISTORY: Significant for endometriosis, migraines, bipolar disorder, and asthma. PAST SURGICAL HISTORY: Significant for laparoscopic right oophorectomy and tonsillectomy. MEDICATIONS: 1. Acetazolamide 500 mg p.o. b.i.d. 2. Potassium chloride 20 mEq p.o. every other day. ALLERGIES: Reported to LITHIUM and PREDNISONE. FAMILY HISTORY: Notable for asthma, hypertension. SOCIAL HISTORY: She is a nonsmoker. Has around 6 glasses of alcohol a week. She is employed at [employer]. REVIEW OF SYSTEMS: Notable for the above-mentioned positives and negatives. Otherwise, a 14-point review of systems was negative. PHYSICAL EXAM: She is a well-developed, well-nourished 43-year-old female, who is in no acute distress with temperature of 97.6, pulse of 56, respirations of 20, blood pressure of 108/69. Abdomen was noted to have well-healed laparoscopic scars. It was nondistended, soft with mild diffuse tenderness with no peritoneal findings. DIAGNOSTIC STUDIES/LAB DATA: Laboratory data as reported above. CT scan images were reviewed, findings as reported above. IMPRESSION: A 43-year-old female with first episode of partial or early small bowel obstruction with no worrisome findings. PLAN/RECOMMENDATIONS: I discussed the findings with the patient. We discussed management options. I recommended trial of conservative therapy with bowel rest , IV hydration, serial exams, and abdominal films in the morning. I explained to the patient that should she fail to improve or should her condition worsen, then surgery may be necessary to resolve this. She is understanding of the situation. She wishes to avoid surgery this time if possible. [facility] will continue to follow her. [id number]/CPS #: [id number] [employer]LEX[employer]
[2019-09-25] MEDS: Morphine INJ* 4 MG/ML 1 ML SYRINGE (NEW SYRINGE VERSION) IV PRN ×6 (01:56→13:13)
[2019-09-25] MEDS: Ondansetron INJ* 2 MG/ML VIAL IV PRN ×3 (02:02→18:10)
[2019-09-25] MEDS: PROCHLORPERAZINE INJ 5 MG/ML 2 ML VIAL IV PRN ×2 (04:02→11:21)
[2019-09-25 05:11] LABS: ABS Eosinophils 0.1 10^3/ul (0-0.6); ABS Lymphocytes 1.7 10^3/ul (1.0-4.8); ABS Monocytes 0.5 10^3/ul (0-0.8); ABS Neutrophils 4.3 10^3/ul (1.5-7.7); Eosinophil % 1.8 %; Hematocrit 44 % (35-47); Hemoglobin 15.1 g/dL (12.0-16.0); Lymphocyte % 25.5 %; Mean Corpuscular HGB Conc 34 g/dL (31-36); Mean Corpuscular Hemoglobin 29 pg (27-31); Mean Corpuscular Volume 84 fL (80-97); Nucleated Red Blood Cells % 0.1; Platelet Count 274 10^3/uL (150-450); Red Blood Count 5.23 10^6 /uL (3.70-4.87); Red Cell Distribution Width 14 % (10-15); White Blood Count 6.6 10^3/uL (3.5-10.8)
[2019-09-25 05:23] LABS: BUN/Creatinine Ratio 12.3 (8-20); Calcium 8.3 mg/dL (8.6-10.3); EGFR African American 104.8 (>60); EGFR Non-African American 86.6 (>60); Potassium 3.7 mmol/L (3.5-5.0)
[2019-09-25] MEDS: NS 0.9% 1000 ML** 1,000 ML IV SCH (06:17)
[2019-09-25] MEDS ORDERED: D5NS 0.9% 1000 ML BAG* 1,000 ML IV SCH (09:00)
[2019-09-25] MEDS ORDERED: Lidocaine 4% GEL* 10 GM TUBE TOPICAL ONE (11:30)
[2019-09-25] MEDS ORDERED: Lidocaine 2% VISCOUS* 15 ML UDC PO ONE (12:00)
[2019-09-25] MEDS ORDERED: Lidocaine 4% TOPICAL* 50 ML TOP.SOLN TOPICAL ONE (12:00)
--- NOTE | 2019-09-25 12:14 | PN ---
Progress Note - Progress Note Date of Service: 09/25/19 SOAP: Subjective: NAD, - flatus - BM [] Objective: Vital Signs Temp 97.9 F 09/25/19 07:15 Pulse 53 09/25/19 07:15 Resp 18 09/25/19 11:21 BP 103/60 09/25/19 07:15 Pulse Ox 100 09/25/19 07:15 Intake & Output 09/24/19 09/25/19 09/25/19 18:59 06:59 18:59 Intake Total 0 1723 1988 Balance 0 1723 1988 Intake: IV Fluids 1723 1988 NS (0.9%) 1723 1988 Oral 0 0 PEX: GEN:NAD Chest:CTA CVS:RRR ABD:soft, + tender most in RLQ EXT:calves soft non tender [] Assessment:43 yo female with SBO - flatus AXR today shows worsening SBO [] Plan: continue NPO, poss NGT, Poss surgery. Patient aware of poss need for surgery All questions answered []
[2019-09-25] MEDS ORDERED: Ondansetron INJ* 2 MG/ML VIAL IV ONE (12:54)
[2019-09-25] MEDS ORDERED: Buffered Lidocaine 1% SYRIN* 1 ML/SYRINGE INTRADERM ONE (12:54)
[2019-09-25] MEDS ORDERED: Famotidine IV* 10 MG/ML 2 ML (20 mg) IV ONE (12:54)
[2019-09-25] MEDS ORDERED: Naloxone* 0.4 MG/ML 1 ML VIAL IV PRN (12:56)
[2019-09-25] MEDS ORDERED: DiMENhydriNATE IV* 50 MG/ML VIAL IV PUSH PRN (12:56)
[2019-09-25] MEDS ORDERED: fentaNYL* 50 MCG/ML 2 ML VIAL (100 MCG VIAL) IV PRN (12:56)
[2019-09-25] MEDS ORDERED: HYDROmorphone INJ1* 1 MG/ML SYRINGE IV PRN (12:56)
[2019-09-25] MEDS ORDERED: KETAMINE HCL* 50 MG/ML 10 ML VIAL ONE (13:08)
[2019-09-25] MEDS ORDERED: fentaNYL* 50 MCG/ML 2 ML VIAL (100 MCG VIAL) ONE (13:08)
[2019-09-25] MEDS ORDERED: Midazolam* 1 MG/ML 5 ML VIAL (5 MG) ONE (13:08)
[2019-09-25] MEDS ORDERED: Rocuronium* 10 MG/ML VIAL ONE ×2 (13:11→15:16)
[2019-09-25] MEDS ORDERED: Famotidine IV* 10 MG/ML 2 ML (20 mg) ONE (13:15)
[2019-09-25] MEDS ORDERED: Ondansetron INJ* 2 MG/ML VIAL ONE (13:15)
[2019-09-25] MEDS: Lactated Ringers 1000 ML Bag* 1,000 ML IV SCH ×3 (13:41→18:15)
[2019-09-25] MEDS ORDERED: ceFOXitin 2 GM IVPREMIX* 2 GM/50 ML BAG ONE (14:17)
--- NOTE | 2019-09-25 14:19 | PN ---
Subjective Date of Service: 09/25/19 Interval History: Patient had severe abdominal pain ongoing overnight requiring frequent morphine. She was more open to the idea of surgery right now. Objective Active Medications: Dimenhydrinate (Dramamine Iv*) 25 mg IV PUSH ONCE PRN PRN Reason: NAUSEA/VOMITING Famotidine (Pepcid Iv*) 20 mg IV ONCE ONE Stop: 09/25/19 12:55 Last Admin: 09/25/19 13:40 Dose: 20 mg Fentanyl Citrate (Fentanyl*) 25 mcg IV Q3M PRN PRN Reason: PAIN - MODERATE Hydromorphone HCl (Dilaudid Inj1s*) 0.2 mg IV Q5M PRN PRN Reason: PAIN - SEVERE Dextrose/Sodium Chloride (D5ns 0.9% 1000 Ml Bag*) 1,000 mls @ 75 mls/hr IV PER [facility]ATE [facility] Last Admin: 09/25/19 09:16 Dose: 75 mls/hr Lactated Ringer's (Lactated Ringers 1000 Ml Bag*) 1,000 mls @ 125 mls/hr IV PER [facility] Last Admin: 09/25/19 13:41 Dose: 125 mls/hr Lidocaine/Sodium Bicarbonate (Buffered Lidocaine 1% Syrin*) 0.2 ml INTRADERM ONCE ONE Stop: 09/25/19 12:55 Morphine Sulfate (Morphine Inj (Syringe)*) 4 mg IV Q1H PRN PRN Reason: PAIN - MODERATE Last Admin: 09/25/19 13:13 Dose: 4 mg Naloxone HCl (Narcan*) 0.08 mg IV Q2M PRN PRN Reason: severe induced resp depression Ondansetron HCl (Zofran Inj*) 4 mg IV Q6H PRN PRN Reason: NAUSEA Last Admin: 09/25/19 08:04 Dose: 4 mg Ondansetron HCl (Zofran Inj*) 2 mg IV ONCE ONE Stop: 09/25/19 12:55 Last Admin: 09/25/19 13:41 Dose: 2 mg Prochlorperazine Edisylate (Compazine Inj*) 10 mg IV Q6H PRN PRN Reason: NAUSEA/VOMITING Last Admin: 09/25/19 11:21 Dose: 10 mg Vital Signs - 8 hr 09/25/19 09/25/19 09/25/19 06:16 07:15 08:00 Temperature 97.9 F Pulse Rate 53 Respiratory 18 16 18 Rate Blood Pressure 103/60 (mmHg) O2 Sat by Pulse 100 Oximetry 09/25/19 09/25/19 09/25/19 08:03 09:16 11:21 Temperature Pulse Rate Respiratory 18 18 18 Rate Blood Pressure (mmHg) O2 Sat by Pulse Oximetry 09/25/19 13:13 Temperature Pulse Rate Respiratory 16 Rate Blood Pressure (mmHg) O2 Sat by Pulse Oximetry Oxygen Devices in Use Now: None Exam: Appearance: alert, no distress Ears/Nose/Mouth/Throat: Clear Oropharnyx Neck: NL Appearance and Movements; NL JVP Respiratory: Symmetrical Chest Expansion and Respiratory Effort, Clear to Auscultation Cardiovascular: NL Sounds; No Murmurs; No JVD Abdominal: NL Sounds; No Tenderness; No Distention; RLQ abdominal tenderness, with no rebound tenderness, BS absent Neurological: Alert and Oriented x 3 Result Diagrams: 09/25/19 04:43 09/25/19 04:43 Assess/Plan/Problems-Billing Assessment: 43 y/o female with history of endometriosis, ovary removal, presented with abdominal cramping, found to have partial small bowel obstruction. - Patient Problems (1) Small bowel obstruction due to adhesions Current Visit: Yes Status: Acute Code(s): K56.50 - INTESTNL ADHESIONS, UNSP TO PARTIAL VERSUS COMPLETE OBST SNOMED Code(s): 372087512 Comment: - likely due to surgical adhesions or endometriosis - on medical management for now, npo - pt can't tolerate ng tube thus was taken off - will need surgical intervention today since she is not improving - iv morphine for pain control - symptomatic management (2) Hypoglycemia Current Visit: Yes Status: Acute Code(s): E16.2 - HYPOGLYCEMIA, UNSPECIFIED SNOMED Code(s): 179018487 Comment: - fasting hypoglycemia - start D5 drip (3) DVT prophylaxis Current Visit: Yes Status: Acute Code(s): Z29.9 - ENCOUNTER FOR PROPHYLACTIC MEASURES, UNSPECIFIED SNOMED Code(s): 470394375 Comment: ambulatory Status and Disposition: Inpatient Medicine. Attestation Documenting Resident: Jacki Taylor Supervising Physician: Geo Urbina Attending/Supervising Physician Comment: Pt with frequent IV morphine overnight and nausea. No BM, no Flatus. NGT attempted this AM but patient reportedly complained of throat pain and it was quickly removed. Taken to OR with Dr. Denny. Seen in PACU, reported single band of adhesion lysed. Uneventful. Attestation: This service has been performed in part by a resident under the direction of a teaching physician.I, Geo Urbina, performed the service, or was physically present during the critical, or hernandez portions of the service, furnished by the resident. I participated in the management of the patient.
[2019-09-25] MEDS ORDERED: Bupivacaine 0.25% EPI 200,000* 30 ML SDV ONE (14:20)
[2019-09-25] MEDS ORDERED: HYDROmorphone INJ1* 1 MG/ML SYRINGE ONE (15:06)
[2019-09-25] MEDS ORDERED: Sugammadex * 200 MG/2 ML VIAL IV PUSH ONE (15:16)
--- NOTE | 2019-09-25 16:03 | BRIEFOPN ---
Brief Operative/Procedure Note - Operation Details Pre-Op Diagnosis: SBO Post-Op Diagnosis: SBO Procedures: laparoscopic lysis of adhesions Surgeon(s)/Proceduralists: Denisha NAYAK/Taisha RICKS Anesthesia: GET Estimated Blood Loss: scant Findings: single band adhesion
[2019-09-25] MEDS ORDERED: Lidocaine 2% PF * 5 ML VIAL ONE (16:20)
[2019-09-25] MEDS ORDERED: Phenylephrine 10 MG/ML VIAL* 1 ML VIAL ONE (16:20)
[2019-09-25] MEDS ORDERED: Propofol* 10 MG/ML 20 ML BTL ONE (16:20)
[2019-09-25] MEDS ORDERED: PROCHLORPERAZINE INJ 5 MG/ML 2 ML VIAL ONE (16:20)
[2019-09-25] MEDS ORDERED: hydrALAZINE IV* 20 MG/ML VIAL IV SLOW PU ONE (16:45)
[2019-09-25] MEDS ORDERED: Morphine INJ* 4 MG/ML 1 ML SYRINGE (NEW SYRINGE VERSION) IV PRN (18:59)
[2019-09-25] MEDS: Ketorolac INJ* 30 MG/ML 1 ML VIAL IV PUSH SCH (19:45)
[2019-09-26] MEDS: Ketorolac INJ* 30 MG/ML 1 ML VIAL IV PUSH SCH ×5 (00:05→23:46)
[2019-09-26] MEDS: Lactated Ringers 1000 ML Bag* 1,000 ML IV SCH ×3 (00:50→20:48)
--- NOTE | 2019-09-26 02:18 | OP ---
DATE OF OPERATION: 09/25/19 - ROOM #347 DATE OF : 73 SURGEON: Madhu Denny MD CONSTRUCTION CARPENTER: RAMBO Hollis ANESTHESIOLOGIST: Dr. Carlson. ANESTHESIA: General with local. PRE-OP DIAGNOSIS: Small bowel obstruction. POST-OP DIAGNOSIS: Small bowel obstruction secondary to adhesive band. OPERATIVE PROCEDURE: Diagnostic laparoscopy with laparoscopic lysis of adhesion. ESTIMATED BLOOD LOSS: Minimal. IV FLUIDS: 1 L of crystalloid. SPECIMENS: None. COMPLICATIONS: None. WOUND CLASSIFICATION: I. DRAINS: None. BRIEF HISTORY: Ms. Umm Casarez is a 43-year-old woman who presented to the emergency room with 3 days of abdominal pain with nausea and vomiting. CT scan showed findings consistent with an acute small bowel obstruction. She has been admitted to the medical service and kept n.p.o. An NG tube was not able to be placed. She complained of persistent severe abdominal pain with worsening crampy pain and persistent nausea with no flatus. After evaluation and taking into consideration the duration of her symptoms and the findings on the CT scan, recommendation was made to proceed to the operating room with a diagnostic laparoscopy, possible exploratory laparotomy. She has had a right oophorectomy in the past done laparoscopically. The procedure was discussed with the patient and family, and the risks including , but not limited to, bleeding, infection, intraabdominal inflammation, injury to peritoneal and retroperitoneal structures, possibility of an open procedure, possibility of bowel resection, possibility of ostomy, and risks of general anesthesia and blood clots were all explained. FINDINGS: A single adhesive band in the pelvis between the fallopian tube and pelvic side wall with knuckle of small bowel herniated causing near complete obstruction. DESCRIPTION OF PROCEDURE: Written informed consent was obtained. The abdomen was marked with indelible ink and preoperative antibiotics were administered. The patient was taken to the operating room and placed in the supine position. Sequential compression devices were placed on the lower extremities. General anesthesia was administered and a Phipps catheter was inserted and a warming blanket was applied. The abdomen was prepped and draped in the usual sterile fashion. The time-out verification was completed. Initially, a transverse incision was made just above the umbilicus and the peritoneum was entered under direct vision. A 12 mm blunt port was inserted and the abdomen was insufflated to 15 mmHg. Under direct vision, a 5 mm port was placed in the left lower abdominal wall and a second 5 mm suprapubic port was placed. There was some darker serous brownish fluid throughout the pelvis which was suctioned. There was viable but distended small bowel in the mid abdomen. The cecum and ileocecal valve were identified. The terminal ileum was collapsed and we proceeded to follow this more proximally using bowel graspers and this extended down into the pelvis on the right side. Here, it became evident that there was a loop of bowel that was quite adherent to the pelvis, and with careful visualization and placing the patient into Trendelenburg position, we were able to visualize a band from the lateral pelvic wall, what appeared to be the fallopian tube that had caused the narrowing and an internal hernia, pinning the bowel and causing the obstruction. The bowel proximal to this was quite distended, but all viable. The band was identified and LigaSure device was used to divide it, thus freeing up the bowel. Upon pulling on the bowel, there was a horizontal serosal small bowel tear, which bled and this was closed with 2 separate 3-0 silk sutures placed laparoscopically. All of the bowel appeared to be viable and there was no other evidence of adhesions. The pelvis was irrigated with saline. All ports removed under direct vision of the camera. The umbilical fascia was closed with interrupted 0 Vicryl suture. The skin at all 3 incisions was approximated with subcuticular 4-0 Vicryl suture. Steri-Strips were applied. The patient tolerated the procedure well and was taken to the recovery room in stable condition. [id number]/[facility] #: [id number] SHAILA
[2019-09-26 05:33] LABS: ABS Eosinophils 0.1 10^3/ul (0-0.6); ABS Lymphocytes 1.1 10^3/ul (1.0-4.8); ABS Monocytes 0.4 10^3/ul (0-0.8); ABS Neutrophils 4.2 10^3/ul (1.5-7.7); Eosinophil % 1.7 %; Hematocrit 42 % (35-47); Hemoglobin 14.6 g/dL (12.0-16.0); Lymphocyte % 18.5 %; Mean Corpuscular HGB Conc 35 g/dL (31-36); Mean Corpuscular Hemoglobin 29 pg (27-31); Mean Corpuscular Volume 82 fL (80-97); Mean Platelet Volume 8.8 fL (7.4-10.4); Nucleated Red Blood Cells % 0.1; Platelet Count 278 10^3/uL (150-450); Red Blood Count 5.07 10^6 /uL (3.70-4.87); Red Cell Distribution Width 14 % (10-15); White Blood Count 5.8 10^3/uL (3.5-10.8)
[2019-09-26 05:51] LABS: BUN/Creatinine Ratio 5.8 (8-20); Calcium 8.3 mg/dL (8.6-10.3); EGFR African American 111.8 (>60); EGFR Non-African American 92.4 (>60); Potassium 3.8 mmol/L (3.5-5.0)
[2019-09-26] MEDS ORDERED: Calcium Gluconate INJ* 2 GM in NS 0.9% 100 ML* 100 ML IV ONE (08:30)
[2019-09-26] MEDS: Morphine INJ* 2 MG/ML 1 ML SYRINGE (TWO MG - NEW SYRINGE VERSION) IV PRN ×2 (10:18→16:45)
[2019-09-26] MEDS: Ondansetron INJ* 2 MG/ML VIAL IV PRN (10:24)
--- NOTE | 2019-09-26 12:25 | PN ---
Progress Note - Progress Note Date of Service: 09/26/19 SOAP: Subjective: Pt seen and examined. Feeling well. pos flatus and BM; wants to go home Objective: Temp Pulse Resp BP Pulse Ox 98.5 F 64 16 115/67 100 09/26/19 11:35 09/26/19 11:35 09/26/19 11:35 09/26/19 11:35 09/26/19 11:35 a and o x3, nad lungs clear abdo: soft/ distended/ NT hypoactive BS ext wnl Assessment: POD 1 lap OSVALDO Plan: advance diet d/c planning
--- NOTE | 2019-09-26 12:29 | PN ---
Subjective Date of Service: 09/26/19 Interval History: POD1 Patient passed gas and liquid like stool this morning. She still had mild RLQ pain. Objective Active Medications: Lactated Ringer's (Lactated Ringers 1000 Ml Bag*) 1,000 mls @ 125 mls/hr IV PER RATE [facility] Last Admin: 09/26/19 08:52 Dose: 125 mls/hr Ketorolac Tromethamine (Toradol Inj*) 30 mg IV PUSH Q6HR [facility] Stop: 09/30/19 19:14 Last Admin: 09/26/19 05:35 Dose: 30 mg Morphine Sulfate (Morphine Inj (Syringe))*) 2 mg IV Q2H PRN PRN Reason: PAIN - SEVERE Last Admin: 09/26/19 10:18 Dose: 2 mg Ondansetron HCl (Zofran Inj*) 4 mg IV Q6H PRN PRN Reason: NAUSEA Last Admin: 09/26/19 10:24 Dose: 4 mg Prochlorperazine Edisylate (Compazine Inj*) 10 mg IV Q6H PRN PRN Reason: NAUSEA/VOMITING Last Admin: 09/25/19 11:21 Dose: 10 mg Vital Signs - 8 hr 09/26/19 09/26/19 09/26/19 07:40 07:51 08:00 Temperature 98.3 F Pulse Rate 66 Respiratory 16 18 18 Rate Blood Pressure 125/72 (mmHg) O2 Sat by Pulse 100 Oximetry 09/26/19 09/26/19 09/26/19 09:18 10:18 11:35 Temperature 98.5 F Pulse Rate 64 Respiratory 18 18 16 Rate Blood Pressure 115/67 (mmHg) O2 Sat by Pulse 100 Oximetry Oxygen Devices in Use Now: None Exam: Appearance: alert, no distress Ears/Nose/Mouth/Throat: Clear Oropharnyx Neck: NL Appearance and Movements; NL JVP Respiratory: Symmetrical Chest Expansion and Respiratory Effort, Clear to Auscultation Cardiovascular: NL Sounds; No Murmurs; No JVD Abdominal: 3 lap incision seen, RLQ abdominal tenderness, with no rebound tenderness, BS present Neurological: Alert and Oriented x 3 Result Diagrams: 09/26/19 05:20 09/26/19 05:20 Assess/Plan/Problems-Billing Assessment: 43 y/o female with history of endometriosis, ovary removal, presented with abdominal cramping, found to have partial small bowel obstruction, had lap lysis of adhesion yesterday. - Patient Problems (1) Small bowel obstruction due to adhesions Current Visit: Yes Status: Acute Code(s): K56.50 - INTESTNL ADHESIONS, UNSP TO PARTIAL VERSUS COMPLETE OBST SNOMED Code(s): 032524162 Comment: - likely due to surgical adhesions or endometriosis - s/p lap OSVALDO yesterday - bowel movement today, advancing diet slowly toay - iv morphine for pain control (2) Hypoglycemia Current Visit: Yes Status: Acute Code(s): E16.2 - HYPOGLYCEMIA, UNSPECIFIED SNOMED Code(s): 978715117 Comment: - hypoglycemia during fasting - resolved (3) DVT prophylaxis Current Visit: Yes Status: Acute Code(s): Z29.9 - ENCOUNTER FOR PROPHYLACTIC MEASURES, UNSPECIFIED SNOMED Code(s): 738639836 Comment: ambulatory Status and Disposition: Inpatient Medicine. Aim home end of today or tomorrow if tolerating diet well. Attestation Documenting Resident: Jacki Taylor Supervising Physician: Geo Urbina Attending/Supervising Physician Comment: having BMs ADAT Possible late d/c after tolerate dinner okay. Vs likely tomorrow. Attestation: This service has been performed in part by a resident under the direction of a teaching physician.I, Geo Urbina, performed the service, or was physically present during the critical, or hernandez portions of the service, furnished by the resident. I participated in the management of the patient.
[2019-09-26] MEDS: oxyCODONE/Acetamin 5/325 MG* TAB PO PRN ×2 (15:09→20:48)
[2019-09-27] MEDS: Morphine INJ* 2 MG/ML 1 ML SYRINGE (TWO MG - NEW SYRINGE VERSION) IV PRN ×2 (00:28→03:23)
[2019-09-27] MEDS: Lactated Ringers 1000 ML Bag* 1,000 ML IV SCH (06:10)
[2019-09-27] MEDS: Ketorolac INJ* 30 MG/ML 1 ML VIAL IV PUSH SCH (06:11)
--- NOTE | 2019-09-27 07:34 | PN ---
Progress Note - Progress Note Date of Service: 09/27/19 SOAP: Subjective: Pt seen and examined. Feeling well. pos flatus and BM; wants to go home, \abdo pain treated with morphine Objective: afvss a and o x3, nad lungs clear abdo: soft/ non-distended/ NT ext wnl Assessment: POD 2 lap OSVALDO Plan: d/c home f/u in office instructions given to pt
[2019-09-27 07:44] VITALS: BP 136/86
--- NOTE | 2019-09-27 10:06 | DS ---
CC: Dr. Madhu Denny; Dr. Orozco * DISCHARGE SUMMARY: DATE OF ADMISSION: 09/25/19 DATE OF DISCHARGE: 09/27/19 SURGEON: Madhu Denny MD.* (DICTATED BY RAMBO GOLDSMITH) DISCHARGE DIAGNOSIS: Lysis of adhesions. ADMISSION DIAGNOSIS: Small bowel obstruction. HOSPITAL COURSE: The patient is a 43-year-old female admitted to the hospital on 09/25/19 with small bowel obstruction, right lower quadrant pain. She was taken to the operating room by Dr. Madhu Denny on 09/25/19 for the same, found to have a single band adhesion. The patient from the operating room was then transferred to the recovery room to the surgical care unit for postoperative medical care. Postop course was uneventful. On 09/27/19, postop day 2, the patient was seen and examined, feeling well, positive flatus, positive bowel movement, desiring to go home. Vital signs were temperature 98.6, pulse 62, respiration 16, O2 sat 100% on room air, BP was 136/86. Wound was clean, dry, and intact. Discharge instructions were given regarding diet, medications, activity, and followup. All questions were answered. The patient is discharged home in stable condition on 09/27/19. TIME SPENT: Total time spent on discharge of the patient was 15 minutes, greater than half was spent RAMBO GOLDSMITH [id number]/[facility] #: [id number] [facility]
== END 2019-09-27 08:20 | disposition home or self-care (01) | DRG 224 ==
LOC: ED 20:40 → MED 09-24 04:21 → SSU 09-25 18:00
PROVIDERS: ADMIT Hospitalist; ATTEND Internal Medicine
PROC: 0DN84ZZ Release Small Intestine, Percutaneous Endoscopic Approach (ICD-10-PCS; principal; 2019-09-25 17:15)
DX: K56.51 Intestinal adhesions [bands], with partial obstruction (principal); K46.0 Unspecified abdominal hernia with obstruction, without gangrene; G43.909 Migraine, unspecified, not intractable, without status migrainosus; F31.9 Bipolar disorder, unspecified; J45.909 Unspecified asthma, uncomplicated; F41.0 Panic disorder [episodic paroxysmal anxiety]; F43.10 Post-traumatic stress disorder, unspecified; E16.2 Hypoglycemia, unspecified; Z90.721 Acquired absence of ovaries, unilateral; Z88.8 Allergy status to other drugs, medicaments and biological substances; Z28.21 Immunization not carried out because of patient refusal
CPT/HCPCS: 36415; 74018; 74177; 76830; 80048; 80053; 81003; 81015; 83690; 84702; 85025; 86140; 87086; 96374; 96375; 99284; A9270-GY; J0360; J0610; J0694; J0780; J1170; J1885; J2250; J2270; J2405; J2704; J3010; Q9967